=== PATIENT | male | born 2000 | race African-American/Black ===

== ENCOUNTER 2022-06-20 06:55 | Emergency (ER) | payer OTHER ==
[~2022-06-20] VITALS: Ht 198.1 cm; Wt 65.8 kg
[2022-06-20 07:02] VITALS: BP 131/76
--- NOTE | 2022-06-20 07:05 | NUR ---
to bed ambulatory
--- NOTE | 2022-06-20 07:26 | NUR ---
X-Ray at bedside.
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
--- NOTE | 2022-06-20 07:27 | NUR ---
DR WILLETT AT BEDSIDE
--- NOTE | 2022-06-20 08:51 | NUR ---
DR WILLETT AT BEDSIDE FOR REEVAL
--- NOTE | 2022-06-20 08:57 | NUR ---
Patient discharged with v/s stable. Written and verbal after care instructions given ABOUT SOB and explained. Patient verbalized understanding. Ambulatory with to car. All questions addressed prior to discharge. Advised to follow up with PMD.
== END 2022-06-20 08:57 | disposition home or self-care (01) ==
LOC: MED 06:55
DX: R06.02 Shortness of breath (principal)
CPT/HCPCS: 36600; 71045; 82803; 93005; 99285; Q0092